=== PATIENT | male | born 1975 | race Asian ===

== ENCOUNTER 2022-06-05 09:43 | Emergency (ER) | payer BC ==
[~2022-06-05] VITALS: Ht 182.9 cm; Wt 63.0 kg
[2022-06-05 09:51] VITALS: BP 149/98
--- NOTE | 2022-06-05 09:53 | NUR ---
AMBULATED TO BED 8
--- NOTE | 2022-06-05 10:40 | NUR ---
47YO MALE PT C/O BURNING 6/10 PAIN DUE TO LACERATION XYESTERDAY. PT STATES CUTTING FINGER WHILE WASHING DISHES. PRESENTS W/ LACERATION ON FINGERTIP OF R THUMB. MILD SWELLING AND ACTIVE BLEEDING NOTED. STATES NUMBING AT SITE, DENIES LOSS OF SENSATION. CAP REFILL <3 THROUGHOUT FINGER AND HAND. DENIES TAKING MEDICATION FOR PAIN, N/V/D , CHEST PAIN, OR SOB . PT AAOX4, RESPIRATIONS EVEN AND UNLABORED. SITTING IN CHAIR AT BEDSIDE. HX: DENIES NKA
--- NOTE | 2022-06-05 10:43 | NUR ---
47/M PRESENTS TO ED WITH C/O LACERATION TO RIGHT THUMB YESTERDAY. STATES HE LOST HIS BALANCE D/T HIS DOGS WHILE WASHING DISHES AND CUT HIM THUMB ON A KNIFE ACCIDENTALLY. BLEEDING CONTROLLED AT THIS TIME WITH BANDAGE IN PLACE, DENIES USING ANY OINTMENTS OR PAIN MEDICATION SINCE INCIDENT.
--- NOTE | 2022-06-05 10:59 | NUR ---
FIONA RAYMOND AT BEDSIDE FOR EVALUATION
[2022-06-05] MEDS ORDERED: BACITRACIN OINT 500 UNITS/GM PKT TP ONE (11:05)
--- NOTE | 2022-06-05 11:15 | NUR ---
per er mid level, pt r thumb irrigated and dressed with non adherent and roller gauze. + cms after application.
[2022-06-05] MEDS ORDERED: IBUP-2213 PO (11:30)
[2022-06-05] MEDS ORDERED: BACI1PAC6 TP (11:30)
[2022-06-05 11:39] VITALS: BP 145/85
--- NOTE | 2022-06-05 11:39 | NUR ---
Patient discharged with v/s stable. Written and verbal after care instructions FOR DEEP SKIN AVULSION given and explained. Patient alert, oriented and verbalized understanding of instructions. Ambulatory with steady gait. All questions addressed prior to discharge. ID band removed. Patient advised to follow up with PMD. Rx of BACITRACIN AND IBUPROFEN given. Opportunity to ask questions provided and answered.
--- NOTE | 2022-06-05 11:56 | NUR ---
The patient's care was reviewed and supervised by Pili Cope RN.
== END 2022-06-05 11:39 | disposition home or self-care (01) ==
LOC: MED 09:43
DX: S61.101A Unspecified open wound of right thumb with damage to nail, initial encounter (principal); Z79.899 Other long term (current) drug therapy; W26.0XXA Contact with knife, initial encounter; Y93.G1 Activity, food preparation and clean up; Y92.89 Other specified places as the place of occurrence of the external cause; Y99.8 Other external cause status
CPT/HCPCS: 90471; 90715; 99283

== ENCOUNTER 2022-06-20 07:51 | Emergency (ER) | payer BC ==
[~2022-06-20] VITALS: Ht 182.9 cm; Wt 65.8 kg
[~2022-06-20 07:51] MED LIST: BACI1PAC6 TP; IBUP-2213 PO
[2022-06-20 08:05] VITALS: BP 153/78
--- NOTE | 2022-06-20 08:08 | NUR ---
PT AMB TO BED 8
--- NOTE | 2022-06-20 08:20 | NUR ---
Dr. Lance evaluating patient at bedside.
[2022-06-20] MEDS ORDERED: NON ADHERENT DRESSING TP SCH (08:35)
[2022-06-20] MEDS ORDERED: BACITRACIN OINT 500 UNITS/GM PKT TP ONE (08:35)
[2022-06-20] MEDS ORDERED: IBUPROFEN 600 MG TAB PO ONE (09:00)
--- NOTE | 2022-06-20 09:05 | NUR ---
Patient discharged with v/s stable. Written and verbal after care instructions given. Patient verbalized understanding. Ambulatory with steady gait. All questions addressed prior to discharge. Advised to follow up with PMD.
--- NOTE | 2022-06-20 09:06 | NUR ---
The patient's care was reviewed and supervised by Marie Engle RN.
== END 2022-06-20 09:05 | disposition home or self-care (01) ==
LOC: MED 07:51
DX: S61.012D Laceration without foreign body of left thumb without damage to nail, subsequent encounter (principal); X58.XXXD Exposure to other specified factors, subsequent encounter
CPT/HCPCS: 99282